=== PATIENT | male | born 1950 | race Caucasian/White ===

== ENCOUNTER 2017-05-16 08:56 | Emergency (ER) | payer OTHER, BC, MEDICARE ==
[2017-05-16 09:13] VITALS: BP 116/55
[2017-05-16] MEDS ORDERED: Sodium Chloride 0.9% 1,000 ML IV ONE (09:15)
[2017-05-16] MEDS ORDERED: Sodium Chloride 0.9% 10 ML Syringe FLUSH PRN (09:15)
[2017-05-16] MEDS ORDERED: fentaNYL 100 MCG/2 ML SDV IVPUSH ONE (09:15)
[2017-05-16] MEDS ORDERED: Ondansetron 4 MG/2 ML SDV IVPUSH ONE (09:15)
[2017-05-16] MEDS ORDERED: Ketorolac 30 MG/ML SDV IVPUSH ONE (09:15)
--- NOTE | 2017-05-16 09:16 | EDM.PDOC ---
ED HPI GENERAL MEDICAL PROBLEM - General Chief Complaint: Trauma Stated Complaint: DIFFICULTY BREATHING Time Seen by Provider: 05/16/17 09:02 Source of Information: Reports: Patient History Limitations: Reports: No Limitations - History of Present Illness INITIAL COMMENTS - FREE TEXT/NARRATIVE: 66 y/o M with R chest pain after injury. Fell with horse about 2 days ago. No LOC. Was able to get up and keep riding. Had aches and pains but thought he was ok so didn't seek medical attention immediately after the injury. Comes in now because he's been having severe R sided chest pains. Waxes adn wanes, worse with movement and inspiration, when severe is 10/10. Better with rest. Feels mildly SOB because he has pain with deep breathing. No headache/neck pain/back pain. Denies abd pain/vomiting. RLE is sore and mildly swollen but he can walk without a limp and is not concerned about it. Denies additional injury. No recent illness. Right Chest Pain Score (Numeric/FACES): 10 - Related Data Allergies Allergy/AdvReac Type Severity Reaction Status Date / Time No Known Allergies Allergy Verified 05/16/17 09:13 Home Meds: Home Meds Aspirin [Halfprin] 81 mg PO DAILY 08/10/15 [History] Lisinopril 40 mg PO DAILY 08/10/15 [History] Metoprolol Tartrate 25 mg PO BID 08/10/15 [History] Ubidecarenone [Co Q-10] 100 mg PO DAILY 08/10/15 [History] atorvaSTATin [Lipitor] 40 mg PO BEDTIME 08/10/15 [History] Docusate Sodium [Colace] 100 mg PO DAILY #30 cap 05/16/17 [Rx] Ibuprofen 800 mg PO TID PRN #60 tablet 05/16/17 [Rx] Meloxicam 15 mg PO QPM 05/16/17 [History] [place]-3S/DHA/Epa/Fish Oil [[place]-3 Fish Oil 1,200 mg Sfgl] 1 cap PO DAILY [History] Polyethylene Glycol 3350 [Miralax] 17 gm PO TID PRN #30 powd.pack 05/16/17 [Rx] oxyCODONE 5 mg PO QID PRN #30 tab 05/16/17 [Rx] traMADol [Ultram] 50 mg PO ASDIRECTED PRN 05/16/17 [History] Past Medical History Cardiovascular History: Reports: Hypertension, CT Musculoskeletal History: Reports: Fracture Other Musculoskeletal History: buritis left hip - Past Surgical History Cardiovascular Surgical History: Reports: Coronary Artery Stent Musculoskeletal Surgical History: Reports: Other (See Below) Social & Family History - Family History Endocrine/Metabolic: Reports: Diabetes, type II Oncologic: Reports: Colon - Tobacco Use Smoking Status *Q: Current Every Day Smoker Years of Tobacco use: 40 Packs/Tins Daily: 0.5 - Recreational Drug Use Recreational Drug Use: No Drug Use in Last 12 Months: No Review of Systems - Review of Systems Review Of Systems: See Below Constitutional: Denies: Fever Eyes: Reports: No Symptoms Ears: Reports: No Symptoms Nose: Reports: No Symptoms Mouth/Throat: Reports: No Symptoms Respiratory: Reports: Shortness of Breath Cardiovascular: Reports: Chest Pain GI/Abdominal: Denies: Abdominal Pain Genitourinary: Reports: No Symptoms Musculoskeletal: Denies: Neck Pain Skin: Reports: No Symptoms Neurological: Reports: No Symptoms ED EXAM, GENERAL - Physical Exam Exam: See Below Exam Limited By: No Limitations General Appearance: Alert, WD/WN, Mild Distress Eye Exam: Bilateral Eye: Normal Inspection Ears: Normal External Exam Nose: Normal Inspection, Normal Mucosa, No Blood Throat/Mouth: Normal Inspection, Normal Oropharynx, Normal Voice, No Airway Compromise Head: Atraumatic, Normocephalic Neck: Normal Inspection, Supple, Non-Tender, Full Range of Motion Respiratory/Chest: No Respiratory Distress, Other (diminished bilaterally possibily due to reduced inspiratory effort, few scattered wheezes) Cardiovascular: Normal Peripheral Pulses, Regular Rate, Rhythm, No Edema, No Murmur GI/Abdominal: Soft, Non-Tender, No Distention. No: Rebound Extremities: Other (R LE: knee nontender, no effusion. Few pre tibial abrasions , no bony TTP or deformity. Mild RLE edema from knee distally with mild soft tissue swelling of the pretibial and ankle areas, compartments soft, distally intact. ) Neurological: Alert, Oriented, Normal Cognition, No Motor/Sensory Deficits Psychiatric: Normal Affect, Normal Mood Skin Exam: Warm, Dry, Intact, Normal Color, No Rash Course - Vital Signs Last Recorded V/S: Last Vital Signs Temp 36.7 C 03/14/18 09:01 Pulse 67 05/16/17 09:01 Resp 13 05/16/17 09:01 BP 116/55 L 05/16/17 09:01 Pulse Ox 98 05/16/17 09:01 - Orders/Labs/Meds Orders: Active Orders 24 hr Category Date Time Status EKG 12 Lead [EKG Documentation Completion] [RC] STAT Care 05/16/17 09:15 Active Peripheral IV Care [RC] . DIRECTED Care 05/16/17 09:15 Active Chest 2V [CR] Stat Exams 05/16/17 09:40 Taken Peripheral IV Insertion Adult [OM.PC] Routine Oth 05/16/17 09:15 Ordered Labs: Laboratory Tests 05/16/17 05/16/17 Range/Units 09:25 09:25 WBC 9.75 H (4.23-9.07) K/mm3 RBC 4.34 L (4.63-6.08) M/mm3 Hgb 14.6 (13.7-17.5) gm/L Hct 42.3 (40.1-51.0) % MCV 97.5 H (79.0-92.2) fl MCH 33.6 H (25.7-32.2) pg MCHC 34.5 (32.2-35.5) g/dl RDW Std Deviation 43.6 (35.1-43.9) fL Plt Count 167 (163-337) K/mm3 MPV 9.9 (9.4-12.3) fl Neut % (Auto) 66.5 (34.0-67.9) % Lymph % (Auto) 19.0 L (21.8-53.1) % [place] % (Auto) 11.5 (5.3-12.2) % Eos % (Auto) 2.6 (0.8-7.0) Baso % (Auto) 0.2 (0.1-1.2) % Neut # (Auto) 6.49 H (1.78-5.38) K/mm3 Lymph # (Auto) 1.85 (1.32-3.57) K/mm3 [place] # (Auto) 1.12 H (0.30-0.82) K/mm3 Eos # (Auto) 0.25 (0.04-0.54) K/mm3 Baso # (Auto) 0.02 (0.01-0.08) K/mm3 Sodium 132 L (136-145) mEq/L Potassium 4.2 (3.5-5.1) mEq/L Chloride 97 L (98-107) mEq/L Carbon Dioxide 27 (21-32) mEq/L Anion Gap 12.2 (5-15) BUN 15 (7-18) mg/dL Creatinine 1.0 (0.7-1.3) mg/dL Est Cr Clr Drug Dosing 80.83 mL/min Estimated GFR (MDRD) > 60 (>60) mL/min BUN/Creatinine Ratio 15.0 (14-18) Glucose 126 H (80-115) mg/dL Calcium 8.9 (8.5-10.1) mg/dL Total Bilirubin 0.7 (0.2-1.0) mg/dL AST 39 H (15-37) U/L ALT 50 (16-63) U/L Alkaline Phosphatase 81 (46-116) U/L Troponin I < 0.017 (0.00-0.056) ng/mL Total Protein 7.7 (6.4-8.2) g/dl Albumin 3.9 (3.4-5.0) g/dl Globulin 3.8 gm/dL Albumin/Globulin Ratio 1.0 (1-2) Meds: Medications Discontinued Medications Generic Name Dose Route Start Last Admin Trade Name Freq PRN Reason Stop Dose Admin Fentanyl 100 mcg 05/16/17 09:15 05/16/17 09:40 Sublimaze IVPUSH 05/16/17 09:16 100 mcg ONETIME ONE Administration Sodium Chloride 1,000 mls @ 1,000 mls/hr 05/16/17 09:15 05/16/17 09:29 Normal Saline IV 05/16/17 10:14 1,000 mls/hr ONETIME ONE Administration Iopamidol 100 ml 05/16/17 10:14 05/16/17 10:21 Isovue-370 (76%) IVPUSH 05/16/17 10:15 100 ml ONETIME ONE Administration Ketorolac Tromethamine 30 mg 05/16/17 09:15 05/16/17 09:27 Toradol IVPUSH 05/16/17 09:16 30 mg ONETIME ONE Administration Ondansetron HCl 4 mg 05/16/17 09:15 05/16/17 09:27 Zofran IVPUSH 05/16/17 09:16 4 mg ONETIME ONE Administration Oxycodone HCl 5 mg 05/16/17 11:55 05/16/17 12:02 Oxycodone PO 05/16/17 11:56 5 mg ONETIME ONE Administration Sodium Chloride 10 ml 05/16/17 09:15 05/16/17 09:27 Saline Flush FLUSH 10 ml ASDIRECTED PRN Administration Keep Vein Open Sodium Chloride 10 ml 05/16/17 10:14 05/16/17 10:21 Saline Flush FLUSH 05/16/17 10:15 10 ml ONETIME ONE Administration - Re-Assessments/Exams Free Text/Narrative Re-Assessment/Exam: 05/16/17 10:39 EKG shows NSR, no evidence of acute ischemia. CXR shows normal cardiac silhouette, no ptx, normal study. Labs normal. CT chest/a/p: 05/16/17 13:46 CT chest a/p shows multiple rib fractures in R lateral chest - 6,7,8. No ptx or other injury on CT. Patient is much more comfortable after fentanyl. Discussed pain control, need for f/u, and return precautions. Departure - Departure Time of Disposition: 11:38 Disposition: Home, Self-Care 01 Clinical Impression: Ribs, multiple fractures Qualifiers: Encounter type: initial encounter Fracture type: closed Laterality: right Qualified Code(s): S22.41XA - Multiple fractures of ribs, right side, initial encounter for closed fracture - Discharge Information Prescriptions: Docusate Sodium [Colace] 100 mg PO DAILY #30 cap Ibuprofen 800 mg PO TID PRN #60 tablet PRN Reason: Pain oxyCODONE 5 mg PO QID PRN #30 tab PRN Reason: Pain Polyethylene Glycol 3350 [Miralax] 17 gm PO TID PRN #30 powd.pack PRN Reason: Constipation Instructions: Rib Fracture, [id number] Referrals: Lexie Alexis DO [Primary Care Provider] - Forms: ED Department Discharge Additional Instructions: 1. Take acetaminophen (tylenol) according to bottle directions and ibuprofen as prescribed for pain. OK to take these meds together - they work and are cleared by the body in different ways. 2. Take oxycodone as prescribed for severe pain. 3. Follow up with a primary doctor in approximately 1 week for further care/ medication refills as needed 4. Take colace (stool softener) daily. Use miralax as needed for constipation or take the over the counter meds of your choice as needed for constipation 5. Return to the ED if you have difficulty breathing, fever, or any other concerning symptoms - My Orders Last 24 Hours: My Active Orders 05/16/17 09:15 EKG 12 Lead [EKG Documentation Completion] [RC] STAT Peripheral IV Care [RC] . DIRECTED Peripheral IV Insertion Adult [OM.PC] Routine 05/16/17 09:40 Chest 2V [CR] Stat - Assessment/Plan Last 24 Hours: My Active Orders 05/16/17 09:15 EKG 12 Lead [EKG Documentation Completion] [RC] STAT Peripheral IV Care [RC] . DIRECTED Peripheral IV Insertion Adult [OM.PC] Routine 05/16/17 09:40 Chest 2V [CR] Stat
[2017-05-16] MEDS ORDERED: Sodium Chloride 0.9% 10 ML Syringe FLUSH ONE (10:14)
[2017-05-16] MEDS ORDERED: Iopamidol 755 Mg/ML 100 ML Bottle IVPUSH ONE (10:14)
--- NOTE | 2017-05-16 11:19 | CT ---
CT chest Technique: Multiple axial sections were obtained from above the lung apices inferiorly through the lung bases. Intravenous contrast was utilized. Comparison: No prior chest CT, prior chest x-ray performed earlier on the same day is available. Findings: Mediastinum and hilar regions show no adenopathy or mass. Minimal coronary artery calcification is seen. No pericardial thickening is seen. Slight scarring is seen within both lung bases. No acute parenchymal densities are seen within the lungs. No pleural effusions or pneumothorax is seen. Bone window settings were reviewed which shows fractures within the right sixth, seventh and eighth ribs. Scattered degenerative spurring is noted within the spine. Reconstructed sagittal images of the sternum appear intact. Impression: 1. 3 right sided rib fractures. 2. No other acute abnormality is seen on CT study of the chest. Diagnostic code #3 CT abdomen and pelvis Technique: Multiple axial sections were obtained from above the dome of the diaphragm inferiorly through the pubic symphysis. Intravenous contrast was utilized. No oral contrast has been given. Comparison: No previous abdominal or pelvic CT exam is available. Findings: Liver shows no focal abnormality. Spleen appears normal. Adrenal glands show no nodule. Kidneys show symmetric contrast enhancement. Cyst is noted within the mid left kidney measuring 2.2 cm. Kidneys are otherwise unremarkable. Pancreas is normal. Gallbladder contains no calcified gallstones. Aorta shows atherosclerotic change which continues into the iliac vessels. No retroperitoneal adenopathy or mesenteric abnormalities are seen. No pelvic mass or adenopathy is seen. No free fluid or inflammatory change is seen within the abdomen or within the pelvis. Anterior wedge deformity is seen of L1 which appears to be old. Scattered degenerative change within this lumbar spine is seen with vacuum phenomena within the L4-5 and L5-S1 apophyseal joints. Nothing acute is seen on bone window settings within the hips or within the pelvis. Impression: 1. Degenerative change within the spine with old appearing anterior wedge deformity of L1. 2. Other incidental findings. Nothing acute is seen on CT study of the abdomen and pelvis. Diagnostic code #2
[2017-05-16] MEDS ORDERED: oxyCODONE 5 MG Tab PO ONE (11:55)
--- NOTE | 2017-05-16 15:52 | CR ---
Chest: Two views of the chest were obtained. Comparison: Prior chest x-ray of 03/19/15. Heart size is normal. Tortuous thoracic aorta is seen. Lungs are clear. Bony structures appear within normal limits for the patient's age. Impression: 1. Nothing acute is identified on two-view chest x-ray. Diagnostic code #2
== END 2017-05-16 12:19 | disposition home or self-care (01) ==
LOC: JD.ED 08:56
DX: S22.41XA Multiple fractures of ribs, right side, initial encounter for closed fracture (principal); F17.210 Nicotine dependence, cigarettes, uncomplicated; I10 Essential (primary) hypertension; I25.2 Old myocardial infarction; Z79.899 Other long term (current) drug therapy; Z79.82 Long term (current) use of aspirin; V80.010A Animal-rider injured by fall from or being thrown from horse in noncollision accident, initial encounter; Y93.52 Activity, horseback riding
CPT/HCPCS: 36415; 71046; 71260; 74177; 80053; 84484; 85025; 93005; 96361; 96374; 96375; 99284; A9270; J1885; J2405; J3010; J7040; J7050; Q9967

== ENCOUNTER 2019-08-13 12:23 | Day surgery (SDC) | payer OTHER ==
[2019-08-13] MEDS ORDERED: Propofol 200 MG/20 ML SDV ONE ×3 (12:44→14:01)
[2019-08-13] MEDS ORDERED: Lidocaine 1% 4 ML ONE (12:45)
[2019-08-13] MEDS ORDERED: fentaNYL 100 MCG/2 ML SDV ONE ×2 (12:45→12:46)
[2019-08-13] MEDS: Lactated Ringers 1,000 ML IV SCH ×2 (12:50→15:04)
--- NOTE | 2019-08-13 13:13 | PCM.PREANE ---
Preanesthetic Assessment - Procedure Proposed Procedure: Screening Colonoscopy - Anesthesia/Transfusion/Family Hx Anesthesia History: Prior Anesthesia Without Reaction Family History of Anesthesia Reaction: No - Review of Systems General: No Symptoms Pulmonary: Cough (Smoker 1/2 pack per day. Dry Cough. ) Cardiovascular: No Symptoms (HI 17 years ago 2 stents placed. Collateral circulation. Follows yearly with cardiology in [place]. ) Gastrointestinal: No Symptoms Neurological: Pre-Existing Deficit Other: Reports: None - Physical Assessment NPO Status Date: 08/13/19 NPO Status Time: 06:00 (Water) Weight: 84 kg ASA Class: 2 Mental Status: Alert & Oriented x3 Airway Class: Mallampati = 1 Dentition: Reports: Normal Dentition Thyro-Mental Finger Breadths: 3 Mouth Opening Finger Breadths: 3 ROM/Head Extension: Full Lungs: Clear to Auscultation, Normal Respiratory Effort Cardiovascular: Regular Rate, Regular Rhythm - Allergies Allergies/Adverse Reactions: Allergies Allergy/AdvReac Type Severity Reaction Status Date / Time No Known Allergies Allergy Verified 05/16/17 09:13 - Acknowledgements Anesthesia Type Planned: MAC Pt an Appropriate Candidate for the Planned Anesthesia: Yes Alternatives and Risks of Anesthesia Discussed w Pt/Guardian: Yes Pt/Guardian Understands and Agrees with Anesthesia Plan: Yes PreAnesthesia Questionnaire HEENT History: Reports: Impaired Vision Cardiovascular History: Reports: Hypertension, [place] Musculoskeletal History: Reports: Fracture Other Musculoskeletal History: buritis left hip - Past Surgical History Cardiovascular Surgical History: Reports: Coronary Artery Stent Musculoskeletal Surgical History: Reports: Other (See Below) - HOME MEDS Home Medications: Home Meds Aspirin [Halfprin] 81 mg PO DAILY 08/10/15 [History] Lisinopril 40 mg PO DAILY 08/10/15 [History] Metoprolol Tartrate 25 mg PO BID 08/10/15 [History] Ubidecarenone [Co Q-10] 100 mg PO DAILY 08/10/15 [History] atorvaSTATin [Lipitor] 40 mg PO BEDTIME 08/10/15 [History] Docusate Sodium [Colace] 100 mg PO DAILY #30 cap 05/16/17 [Rx] Ibuprofen 800 mg PO TID PRN #60 tablet 05/16/17 [Rx] Meloxicam 15 mg PO QPM 05/16/17 [History] [place]-3S/DHA/Epa/Fish Oil [[place]-3 Fish Oil 1,200 mg Sfgl] 1 cap PO DAILY [History] oxyCODONE 5 mg PO QID PRN #30 tab 05/16/17 [Rx] polyethylene glycoL 3350 [Miralax] 17 gm PO TID PRN #30 powd.pack 05/16/17 [Rx] traMADol [Ultram] 50 mg PO ASDIRECTED PRN 05/16/17 [History] - CURRENT (IN HOUSE) MEDS Current Meds: Current Medications Discontinued Medications Fentanyl (Sublimaze) Confirm Administered Dose 100 mcg .ROUTE .STK-MED ONE Stop: 08/13/19 12:46 Fentanyl (Sublimaze) Confirm Administered Dose 100 mcg .ROUTE .STK-MED ONE Stop: 08/13/19 12:47 Lidocaine HCl (Xylocaine-Mpf 1%) Confirm Administered Dose 4 mls @ as directed .ROUTE .STK-MED ONE Stop: 08/13/19 12:46 Propofol (Diprivan 20 Ml) Confirm Administered Dose 400 mg .ROUTE .STK-MED ONE Stop: 08/13/19 12:45
--- NOTE | 2019-08-13 14:31 | PCM48HPAN ---
Post Anesthesia Note - EVALUATION WITHIN 48HRS OF ANESTHETIC Vital Signs in Normal Range: Yes Patient Participated in Evaluation: Yes Respiratory Function Stable: Yes Airway Patent: Yes Cardiovascular Function Stable: Yes Hydration Status Stable: Yes Pain Control Satisfactory: Yes Nausea and Vomiting Control Satisfactory: Yes Mental Status Recovered: Yes
[2019-08-13] MEDS ORDERED: Lidocaine 1%/Sod Bicarbonate in NS 8.4% 1 ML Syringe IDERM ONE (14:32)
--- NOTE | 2019-08-13 14:36 | PCM.PRNOTE ---
- Free Text/Narrative Note: Date: 08/13/2019 Procedure: screening colonoscopy Findings: 1 cm irregular broad-based polypoid lesion near hepatic flexure, with adjacent simple subcentimeter polyp. Broad, approximately 3 cm sessile lesion at 30 cm from the anal verge. Scattered small diverticula. Detailed Report: The patient was taken to the endoscopy suite and placed in left lateral decubitus position. Time out was performed and monitored anesthesia care initiated. The anus appeared normal. Digital rectal exam was unremarkable. The colonoscope was inserted into the anus and advanced to the cecum with ease. The appendiceal orifice was visualized. Prep was very good. The scope was slowly withdrawn and mucosal surfaces carefully inspected. Near the hepatic flexure, a 1 cm, irregular shaped broad-based polyp was identified. This was resected piecemeal with forceps; it was very difficult to get any purchase with the snare. Remaining tissue was fulgurated, and submucosal tattoo ink was injected just distal to this lesion. A nearby subcentimeter polyp, within 10 cm downstream, was biopsied and fulgurated with forceps. Aside from a few scattered small diverticula, no abnormalities were noted until about 30 cm from the anal verge. A broad-based, crescent shaped sessile polyp spanning about half the circumference of the wall of the colon was identified. This was not amenable to complete endoscopic resection. Several biopsy samples were obtained using cold forceps. This lesion appeared to be well within the boundaries of the sigmoid colon. Distal tattoo inking was performed with submucosal injection. The rectum appeared normal, on retroflexion, no abnormalities were noted. Air was suctioned and the scope withdrawn. The patient tolerated the procedure well. Naren Grace MD General Surgery
[2019-08-13 15:01] VITALS: BP 124/77; PULSE 69
== END 2019-08-13 15:20 | disposition home or self-care (01) ==
LOC: JD.SDS 12:23
PROVIDERS: ATTEND Surgery
DX: Z12.11 Encounter for screening for malignant neoplasm of colon (principal); D12.2 Benign neoplasm of ascending colon; D12.5 Benign neoplasm of sigmoid colon; K57.30 Diverticulosis of large intestine without perforation or abscess without bleeding; I10 Essential (primary) hypertension; F17.210 Nicotine dependence, cigarettes, uncomplicated; E78.00 Pure hypercholesterolemia, unspecified; Z79.899 Other long term (current) drug therapy; Z79.82 Long term (current) use of aspirin
CPT/HCPCS: 45380; 45381; J2001; J2704; J3010; J7120; 00812

== ENCOUNTER 2019-11-27 08:29 | Day surgery (SDC) | payer OTHER ==
[~2019-11-27 08:29] MED LIST: Lactated Ringers 1,000 ML IV SCH; Lidocaine 1%/Sod Bicarbonate in NS 8.4% 1 ML Syringe IDERM PRN; Sodium Chloride 0.9% 10 ML Syringe FLUSH PRN
--- NOTE | 2019-11-27 09:40 | PCM.PREANE ---
Preanesthetic Assessment - Procedure Proposed Procedure: diagnositic colonscopy - Anesthesia/Transfusion/Family Hx Anesthesia History: Prior Anesthesia Without Reaction Family History of Anesthesia Reaction: No Transfusion History: No Prior Transfusion(s) Intubation History: Unknown - Review of Systems General: No Symptoms Pulmonary: No Symptoms Cardiovascular: No Symptoms Gastrointestinal: No Symptoms Neurological: No Symptoms Other: Reports: None - Physical Assessment NPO Status Date: 11/27/19 NPO Status Time: 04:30 (bowel prep, sunday last food ) Vital Signs: Last Vital Signs Temp 36.2 C 11/27/19 08:25 Pulse 57 L 11/27/19 08:25 Resp 18 11/27/19 08:25 BP 151/63 H 11/27/19 08:25 Pulse Ox 96 11/27/19 08:25 Height: 1.83 m Weight: 83.5 kg Mental Status: Alert & Oriented x3 Dentition: Reports: Normal Dentition, [place] Thyro-Mental Finger Breadths: 3 Mouth Opening Finger Breadths: 4 ROM/Head Extension: Full Lungs: Clear to Auscultation, Normal Respiratory Effort Cardiovascular: Regular Rate, Regular Rhythm - Lab Values: Laboratory Last Values SARS-CoV-2 (PCR) Not detected (NOT DETECT) 11/24/19 11:45 - Allergies Allergies/Adverse Reactions: Allergies Allergy/AdvReac Type Severity Reaction Status Date / Time No Known Allergies Allergy Verified 11/26/19 12:21 - Blood Blood Available: No - Anesthesia Plan Beta Mayco: Metoprolol - Acknowledgements Anesthesia Type Planned: MAC Pt an Appropriate Candidate for the Planned Anesthesia: Yes Alternatives and Risks of Anesthesia Discussed w Pt/Guardian: Yes Pt/Guardian Understands and Agrees with Anesthesia Plan: Yes PreAnesthesia Questionnaire HEENT History: Reports: Hard of Hearing, Impaired Vision, Other (See Below) Other HEENT History: wears glasses Cardiovascular History: Reports: High Cholesterol, Hypertension, [place], Stents Respiratory History: Reports: None Gastrointestinal History: Reports: None Genitourinary History: Reports: Other (See Below) Other Genitourinary History: vasectomy [employer]AY 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: 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 Musculoskeletal History: Reports: Fracture, Osteoarthritis Other Musculoskeletal History: buritis left hip Neurological History: Reports: Other (See Below) Other Neuro History: lumbar degenerative disc disease, spinal stenosis of lumbar region with radiculopathy Psychiatric History: Reports: None Endocrine/Metabolic History: Reports: None Hematologic History: Reports: None Immunologic History: Reports: None Oncologic (Cancer) History: Reports: None Dermatologic History: Reports: None - Infectious Disease History Infectious Disease History: Reports: None - Past Surgical History Head Surgeries/Procedures: Reports: None Cardiovascular Surgical History: Reports: None, Coronary Artery Stent Respiratory Surgical History: Reports: None GI Surgical History: Reports: Colonoscopy Female Surgical History: Reports: None Male Surgical History: Reports: None Endocrine Surgical History: Reports: None Neurological Surgical History: Reports: Lumbar Spine Musculoskeletal Surgical History: Reports: Other (See Below) Other Musculoskeletal Surgeries/Procedures:: elbow surgery Oncologic Surgical History: Reports: None Dermatological Surgical History: Reports: None - SUBSTANCE USE Smoking Status *Q: Current Every Day Smoker Recreational Drug Use History: No - HOME MEDS Home Medications: Home Meds Aspirin [Halfprin] 81 mg PO DAILY 08/10/15 [History] Lisinopril 40 mg PO DAILY 08/10/15 [History] Ubidecarenone [Co Q-10] 100 mg PO DAILY 08/10/15 [History] Meloxicam 15 mg PO QPM 05/16/17 [History] [place]-3S/DHA/Epa/Fish Oil [[place]-3 Fish Oil 1,200 mg Sfgl] 1 cap PO DAILY 05/16/17 [History] Cholecalciferol (Vitamin D3) [Vitamin D3] 1,000 unit PO DAILY 11/26/19 [History] Metoprolol Tartrate 12.5 mg PO BID 11/26/19 [History] Sildenafil [Viagra] 100 mg PO ASDIRECTED PRN 11/26/19 [History] atorvaSTATin [Lipitor] 20 mg PO DAILY 11/26/19 [History] - CURRENT (IN HOUSE) MEDS Current Meds: Current Medications Lactated Ringer's (Ringers, Lactated) 1,000 mls @ 125 mls/hr IV ASDIRECTED TARA Stop: 11/27/19 23:00 Last Admin: 11/27/19 08:35 Dose: 125 mls/hr Documented by: Lidocaine/Sodium Bicarbonate (Buffered Lidocaine 1% In Ns 8.4%) 0.25 ml IDERM ONETIME PRN PRN Reason: Prior to IV Start Stop: 11/27/19 18:00 Sodium Chloride (Saline Flush) 10 ml FLUSH ASDIRECTED PRN PRN Reason: Keep Vein Open Stop: 11/27/19 18:00
[2019-11-27] MEDS ORDERED: Propofol 200 MG/20 ML SDV ONE ×4 (09:43→11:07)
[2019-11-27] MEDS ORDERED: Lidocaine 1% 4 ML ONE (09:43)
--- NOTE | 2019-11-27 11:28 | PCM48HPAN ---
Post Anesthesia Note - EVALUATION WITHIN 48HRS OF ANESTHETIC Vital Signs in Normal Range: Yes Patient Participated in Evaluation: Yes Respiratory Function Stable: Yes Airway Patent: Yes Cardiovascular Function Stable: Yes Hydration Status Stable: Yes Pain Control Satisfactory: Yes Nausea and Vomiting Control Satisfactory: Yes Mental Status Recovered: Yes Vital Signs: Last Vital Signs 1123 95/61 94 on 2 l 64 16 97.1 Temp 36.2 C 11/27/19 08:25 Pulse 57 L 11/27/19 08:25 Resp 18 11/27/19 08:25 BP 151/63 H 11/27/19 08:25 Pulse Ox 96 11/27/19 08:25
--- NOTE | 2019-11-27 11:59 | PCM.PRNOTE ---
- Free Text/Narrative Note: Date: 08/13/2019 Procedure: diagnostic/therapeutic colonoscopy Indication: prior screening three months ago with larger, sessile lesions worrisome for dysplasia or malignancy, with path showing only evidence of tubular adenoma. Findings: 1 cm irregular broad-based polypoid lesion near hepatic flexure, similar to appearance on last scope. Broad, approximately 3 cm sessile lesion at 30 cm from the anal verge, unchanged from prior. Scattered small diverticula. Detailed Report: The patient was taken to the endoscopy suite and placed in left lateral decubitus position. Time out was performed and monitored anesthesia care initiated. The anus appeared normal. Digital rectal exam was unremarkable. The colonoscope was inserted into the anus and advanced to the cecum with ease. The appendiceal orifice was visualized. Prep was very good. The scope was slowly withdrawn and mucosal surfaces carefully inspected. Near the hepatic flexure, a an irregular shaped broad-based polyp was identified. Several biopsies with forceps were obtained, but this lesion was not amenable to complete endoscopic resection. I did not see evidence of prior tattooing so this was redone. Aside from a few scattered small diverticula, no abnormalities were noted until about 30 cm from the anal verge. A broad-based, crescent shaped sessile polyp spanning about half the circumference of the wall of the colon was identified. This was again deemed not amenable to complete endoscopic resection, as its appearance was essentially unchanged from three months ago. Several biopsy samples were obtained using cold forceps. The ridge was then fulgurated. Distal tattoo inking was performed with submucosal injection. The rectum appeared normal, on retroflexion, no abnormalities were noted. Air was suctioned and the scope withdrawn. The patient tolerated the procedure well.
[2019-11-27 13:12] VITALS: BP 138/89; PULSE 50
== END 2019-11-27 12:28 | disposition home or self-care (01) ==
LOC: JD.SDS 08:29
PROVIDERS: ATTEND Surgery
DX: D12.5 Benign neoplasm of sigmoid colon (principal); D12.3 Benign neoplasm of transverse colon; K57.30 Diverticulosis of large intestine without perforation or abscess without bleeding; Z01.812 Encounter for preprocedural laboratory examination; Z20.828 Contact with and (suspected) exposure to other viral communicable diseases; I10 Essential (primary) hypertension; F17.210 Nicotine dependence, cigarettes, uncomplicated; E78.00 Pure hypercholesterolemia, unspecified; Z79.899 Other long term (current) drug therapy; Z98.890 Other specified postprocedural states; Z79.82 Long term (current) use of aspirin
CPT/HCPCS: 45380; 45381; 87635; J2001; J2704; J7120; 00811; U0002

== ENCOUNTER 2019-12-25 06:34 | Inpatient (IN) | payer OTHER, MEDICARE ==
[2019-12-25] MEDS ORDERED: Midazolam 1 MG/ML 2 ML SDV ONE (08:36)
[2019-12-25] MEDS ORDERED: fentaNYL 100 MCG/2 ML SDV ONE (08:36)
[2019-12-25] MEDS ORDERED: Propofol 200 MG/20 ML SDV ONE (08:36)
[2019-12-25] MEDS ORDERED: Ondansetron 4 MG/2 ML SDV ONE ×2 (08:37→15:26)
[2019-12-25] MEDS ORDERED: Lidocaine 1% 4 ML ONE (08:37)
[2019-12-25] MEDS ORDERED: Dexamethasone 4 MG/ML 5 ML MDV ONE (08:37)
[2019-12-25] MEDS ORDERED: Rocuronium 50 MG/5 ML Vial ONE ×2 (08:37→11:17)
[2019-12-25] MEDS ORDERED: Ketorolac 30 MG/ML SDV ONE (08:37)
--- NOTE | 2019-12-25 08:44 | PCM.PREANE ---
Preanesthetic Assessment - Procedure Proposed Procedure: Right partial colectomy open and partial sigmoid - Anesthesia/Transfusion/Family Hx Anesthesia History: Prior Anesthesia Without Reaction Family History of Anesthesia Reaction: No Transfusion History: No Prior Transfusion(s) Intubation History: Unknown - Review of Systems General: No Symptoms Pulmonary: Cough, Other (Smoker 1/2 ppday. 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 Collateral circulation established. Greather than 4 MET capacity. ) Gastrointestinal: No Symptoms Neurological: Numbness (Hands), Pre-Existing Deficit (Back surgery for lumbar stenosis) Other: Reports: None - Physical Assessment Vital Signs: Last Vital Signs Temp 36.7 C 12/25/19 08:10 Pulse 60 12/25/19 08:10 Resp 16 12/25/19 08:10 BP 123/81 12/25/19 08:10 Pulse Ox 96 12/25/19 08:10 ASA Class: 3 Mental Status: Alert & Oriented x3 Airway Class: Mallampati = 2 Dentition: Reports: Normal Dentition Thyro-Mental Finger Breadths: 3 Mouth Opening Finger Breadths: 3 ROM/Head Extension: Full Lungs: Clear to Auscultation, Normal Respiratory Effort, Decreased Breath Sounds Cardiovascular: Regular Rate, Regular Rhythm - Lab Values: Laboratory Last Values WBC 7.53 K/mm3 (4.23-9.07) 12/25/19 08:21 RBC 4.74 M/mm3 (4.63-6.08) 12/25/19 08:21 Hgb 15.7 gm/dl (13.7-17.5) 12/25/19 08:21 Hct 46.2 % (40.1-51.0) 12/25/19 08:21 MCV 97.5 fl (79.0-92.2) H 12/25/19 08:21 MCH 33.1 pg (25.7-32.2) H 12/25/19 08:21 MCHC 34.0 g/dl (32.2-35.5) 12/25/19 08:21 RDW Std Deviation 45.3 fL (35.1-43.9) H 12/25/19 08:21 Plt Count 178 K/mm3 (163-337) 12/25/19 08:21 MPV 9.8 fl (9.4-12.3) 12/25/19 08:21 Neut % (Auto) 58.7 % (34.0-67.9) 12/25/19 08:21 Lymph % (Auto) 27.2 % (21.8-53.1) 12/25/19 08:21 Aiken % (Auto) 11.0 % (5.3-12.2) 12/25/19 08:21 Eos % (Auto) 2.4 (0.8-7.0) 12/25/19 08:21 Baso % (Auto) 0.3 % (0.1-1.2) 12/25/19 08:21 Neut # (Auto) 4.42 K/mm3 (1.78-5.38) 12/25/19 08:21 Lymph # (Auto) 2.05 K/mm3 (1.32-3.57) 12/25/19 08:21 Aiken # (Auto) 0.83 K/mm3 (0.30-0.82) H 12/25/19 08:21 Eos # (Auto) 0.18 K/mm3 (0.04-0.54) 12/25/19 08:21 Baso # (Auto) 0.02 K/mm3 (0.01-0.08) 12/25/19 08:21 - Imaging/EKG Impressions: Reviewed. - Allergies Allergies/Adverse Reactions: Allergies Allergy/AdvReac Type Severity Reaction Status Date / Time No Known Allergies Allergy Verified 12/25/19 09:32 - Anesthesia Plan Pre-Op Medication Ordered: Other (Albuterol Neb Preoperatively) Beta Mayco: Metoprolol Med Last Dose Date: 12/25/19 Med Last Dose Time: 06:00 - Acknowledgements Anesthesia Type Planned: General Anesthesia Pt an Appropriate Candidate for the Planned Anesthesia: Yes Alternatives and Risks of Anesthesia Discussed w Pt/Guardian: Yes Pt/Guardian Understands and Agrees with Anesthesia Plan: Yes PreAnesthesia Questionnaire HEENT History: Reports: Impaired Vision Other HEENT History: wears glasses Cardiovascular History: Reports: Hypertension, [place] Respiratory History: Reports: None Gastrointestinal History: Reports: None Genitourinary History: Reports: Other (See Below) Other Genitourinary History: vasectomy 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 Musculoskeletal History: Reports: Fracture Other Musculoskeletal History: buritis left hip Neurological History: Reports: Other (See Below) Other Neuro History: lumbar degenerative disc disease, spinal stenosis of lumbar region with radiculopathy Psychiatric History: Reports: None Endocrine/Metabolic History: Reports: None Hematologic History: Reports: None Immunologic History: Reports: None Oncologic (Cancer) History: Reports: None Dermatologic History: Reports: None - Infectious Disease History Infectious Disease History: Reports: None - Past Surgical History Head Surgeries/Procedures: Reports: None Cardiovascular Surgical History: Reports: Coronary Artery Stent Respiratory Surgical History: Reports: None GI Surgical History: Reports: Colonoscopy Female Surgical History: Reports: None Male Surgical History: Reports: None Endocrine Surgical History: Reports: None Neurological Surgical History: Reports: Lumbar Spine Musculoskeletal Surgical History: Reports: Other (See Below) Other Musculoskeletal Surgeries/Procedures:: elbow surgery Oncologic Surgical History: Reports: None Dermatological Surgical History: Reports: None - SUBSTANCE USE Tobacco Use Status *Q: Current Every Day Tobacco User Recreational Drug Use History: No - HOME MEDS Home Medications: Home Meds Aspirin [Halfprin] 81 mg PO QPM 08/10/15 [History] Lisinopril 40 mg PO QPM 08/10/15 [History] Ubidecarenone [Co Q-10] 100 mg PO DAILY 08/10/15 [History] Meloxicam 15 mg PO DAILY 05/16/17 [History] [place]-3S/DHA/Epa/Fish Oil [[place]-3 Fish Oil 1,200 mg Sfgl] 1,000 mg PO DAILY 05/16/17 [History] Cholecalciferol (Vitamin D3) [Vitamin D3] 1,000 unit PO QPM 11/26/19 [History] Metoprolol Tartrate 25 mg PO BID 11/26/19 [History] Sildenafil [Viagra] 100 mg PO ASDIRECTED PRN 11/26/19 [History] atorvaSTATin [Lipitor] 20 mg PO QPM 11/26/19 [History] - CURRENT (IN HOUSE) MEDS Current Meds: Current Medications Albuterol (Proventil Neb Soln) 2.5 mg NEB ONETIME TARA Stop: 12/25/19 12:00 Lactated Ringer's (Ringers, Lactated) 1,000 mls @ 125 mls/hr IV ASDIRECTED TARA Stop: 12/25/19 23:00 Cefoxitin Sodium 2 gm/ Premix 50 mls @ 100 mls/hr IV ONETIME TARA Stop: 12/25/19 12:00 Influenza Virus Vaccine (Fluzone High-Dose Quad ) 240 mcg IM .ONCE ONE Stop: 12/25/19 11:01 Lidocaine/Sodium Bicarbonate (Buffered Lidocaine 1% In Ns 8.4%) 0.25 ml IDERM ONETIME PRN PRN Reason: Prior to IV Start Stop: 12/25/19 18:00 Sodium Chloride (Saline Flush) 10 ml FLUSH ASDIRECTED PRN PRN Reason: Keep Vein Open Stop: 12/25/19 18:00 Discontinued Medications Dexamethasone (Dexamethasone) Confirm Administered Dose 20 mg .ROUTE .STK-MED ONE Stop: 12/25/19 08:38 Fentanyl (Sublimaze) Confirm Administered Dose 100 mcg .ROUTE .STK-MED ONE Stop: 12/25/19 08:37 Lidocaine HCl (Xylocaine-Mpf 1%) Confirm Administered Dose 4 mls @ as directed .ROUTE .STK-MED ONE Stop: 12/25/19 08:38 Influenza Virus Vaccine (Pharmacy To Dose - Influenza Vaccine) 1 each IM ONETIME ONE Stop: 12/24/19 16:12 Ketorolac Tromethamine (Toradol) Confirm Administered Dose 30 mg .ROUTE .STK-MED ONE Stop: 12/25/19 08:38 Midazolam HCl (Versed 1 Mg/Ml) Confirm Administered Dose 2 mg .ROUTE .STK-MED ONE Stop: 12/25/19 08:37 Ondansetron HCl (Zofran) Confirm Administered Dose 4 mg .ROUTE .STK-MED ONE Stop: 12/25/19 08:38 Propofol (Diprivan 20 Ml) Confirm Administered Dose 200 mg .ROUTE .STK-MED ONE Stop: 12/25/19 08:37 Rocuronium Kiron (Zemuron) Confirm Administered Dose 50 mg .ROUTE .STK-MED ONE Stop: 12/25/19 08:38
[2019-12-25] MEDS ORDERED: Bupivacaine 0.5%/EPINEPHrine 1:200,000 50 ML MDV ONE (08:46)
[2019-12-25] MEDS ORDERED: cefOXitin 2 GM in Premix Bag 1 BAG IV SCH (09:00)
[2019-12-25] MEDS ORDERED: Albuterol 0.083% 2.5 MG/3 ML Neb Soln NEB SCH (09:00)
[2019-12-25] MEDS ORDERED: Lactated Ringers 1,000 ML ONE ×2 (10:28→11:49)
[2019-12-25] MEDS ORDERED: HYDROmorphone 0.5 MG/0.5 ML Syringe ONE ×7 (10:43→14:57)
[2019-12-25] MEDS ORDERED: ePHEDrine 50 MG/ML SDV ONE (10:53)
[2019-12-25] MEDS ORDERED: Ketamine 500 mg/10 ML MDV ONE (11:00)
[2019-12-25] MEDS ORDERED: FLU Vacc QV2020-21(65YR UP)/PF 240 MCG/0.7 ML Syringe IM ONE ×2 (11:00→23:00)
[2019-12-25] MEDS ORDERED: oxyCODONE 5 MG Tab PO PRN (15:30)
[2019-12-25] MEDS ORDERED: Ondansetron 4 MG in Sodium Chloride 0.9% 50 ML IV SCH (15:45)
[2019-12-25] MEDS ORDERED: HYDROmorphone 0.5 MG/0.5 ML Syringe IVPUSH PRN (16:00)
[2019-12-25] MEDS ORDERED: Ondansetron 4 MG/2 ML SDV IVPUSH PRN (16:00)
[2019-12-25] MEDS ORDERED: fentaNYL 100 MCG/2 ML SDV IVPUSH PRN (16:00)
--- NOTE | 2019-12-25 16:00 | PCM.POSTAN ---
POST ANESTHESIA ASSESSMENT - MENTAL STATUS Mental Status: Somnolent - VITAL SIGNS Vital Signs: Last Vital Signs Temp 36.7 C 12/25/19 08:10 Pulse 60 12/25/19 08:10 Resp 16 12/25/19 08:10 BP 123/81 12/25/19 08:10 Pulse Ox 96 12/25/19 08:10 - RESPIRATORY Respiratory Status: Respiratory Rate WNL, Airway Patent, O2 Saturation Stable, Supplemental Oxygen - CARDIOVASCULAR CV Status: Pulse Rate WNL, Blood Pressure Stable - GASTROINTESTINAL GI Status: No Symptoms - PAIN Pain Score: 0 - POST OP HYDRATION Hydration Status: Adequate & Stable
--- NOTE | 2019-12-25 17:22 | PCM.PRNOTE ---
- Free Text/Narrative Note: Date: 12/25/2019 Operation: open partial sigmoid colectomy, laparoscopic assisted right hemicolectomy Indication: colon polyps not amenable to endoscopic resection Surgeon: Naren Grace Antibiotics: 2 g cefoxitin IV pre-op EBL: 100 cc DVT Ppx: SCD Complications: none Findings: Pfannenstiel incision made for open resection of sigmoid colon. Tattoo ink sites identified at mid-sigmoid colon and proximal transverse colon. A 5 cm section of sigmoid colon was resected and hand-sewn end-to-end anastomosis created. The incision was closed and then laparoscopic right colectomy with stapled side to side ileocolic anastomosis created using linear cutting stapler. Detailed Report: The patient was taken to the OR and placed supine on the table. Time out was performed. General endotracheal anesthesia was initiated. A dong catheter was placed, abdominal hair was clipped and the abdomen was prepped and draped in usual sterile fashion. A low transverse abdominal incision was made 2 cm superior to the pubic symphysis measuring 7 cm. The anterior rectus fascia was divided transversely, and flaps created superiorly and inferiorly in the plane anterior to the rectus muscles. The peritoneum was then entered safely at the midline. The Bookwalter retractor was set up to aid with retraction and exposure. With the patient in Trendelenburg position, the sigmoid colon was brought into the operative field. The tattoo ink was seen at the level of the serosa, which marked the point just distal to the lesion in question. Lateral attachments were divided from the pelvic inlet up toward the spleen, and the sigmoid was well mobilized. A window was made in the mesentery just distal to the tattoo site, and a linear cutting stapler was used to divide the bowel. The Ligasure was used to divide mesocolon heading proximally to a site a few centimeters proximal to the ink marking. The contour stapler was used to divide proximally, and stay sutures were placed to bring the two stapled ends into view. The staple lines were removed with monopolar energy. The lumen was inspected proximally and distally and no abnormalities were noted. The ends came together without tension. A single layer hand-sewn anastomosis was created using interrupted 3-0 vicryl suture. It did not appear feasible to do the entire right mobilization through the Pfannenstiel incision, and so the incision was closed in layers using 0 PDS suture longitudinally to close the peritoneum and transversely to close the anterior rectus fascia. Skin was closed with dipika. Next, a Veress needle was placed at Garcia's point for insufflation. Once pneumoperitoneum was established, a 12 mm bladed port was placed at the supraumbilical region. A 10 mm 30 degree laparoscope was inserted. Veress insertion had caused no inadvertent injury. The needle was removed. Additional 5 mm ports were placed at the LLQ and LUQ. The appendix was seen coming off the cecum. An additional 5 mm port was palced at the RLQ. This area was grasped and placed on tension inferiorly and anteriorly to help identify the ileocolic pedicle. Medial to lateral dissection proceeded, taking the mesocolon off the retroperitoneum. The ileocolic vessels were divided with the Ligasure. The duodenum was identified and protected. Next, the terminal ileum was mobilized from its surrounding attachment, and lateral attachments of the ascending colon were divided up to the hepatic flexure. The ileum was divided 5 cm proximal to the ileocecal valve using the powered linear cutting stapler. The proximal transverse colon was mobilized as well, and attachments to the gallbladder required adhesiolysis. Laparoscopic graspers were placed on the stapled ends of small bowel. The 12 port was then removed, and the incision at this site extended cephalad for 5 cm. The cecum was passed up through the incision and the inked area of the colon was externalized. The ileum also reached up easily into the field outside of the abdomen. The contour stapler was again used to divide the colon just distal to the ink marking and specimen was passed off the field. The two stapled ends of bowel were lined up side by side, and enterotomies were made to permit passage of a 60 mm linear cutting stapler. After the anastomosis was created, the remaining enterotomy was closed with a 30 mm TA stapler. The bowel was reduced into the abdomen and covered with omentum. Fascia was closed with running 0 PDS suture and skin closed with dipika. The 5 mm laparoscopic sites were closed with interrupted deep dermal sutures and dressed with mastisol and steri-strips. The patient tolerated the operation well.
[2019-12-25] MEDS: Acetaminophen 325 MG Tab PO SCH (17:42)
[2019-12-25] MEDS: Ondansetron 4 MG/2 ML SDV IV SCH ×2 (17:42→21:41)
[2019-12-25] MEDS: Morphine PF 30 MG/30 ML PCA Vial IV SCH (17:58)
[2019-12-25] MEDS: Lactated Ringers 1,000 ML IV SCH (18:02)
[2019-12-25] MEDS: Simvastatin 20 MG Tab PO SCH (18:11)
[2019-12-25] MEDS: Metoprolol Tartrate 25 MG Tab PO SCH (21:41)
[2019-12-26] MEDS: Acetaminophen 325 MG Tab PO SCH ×3 (00:08→15:00)
[2019-12-26] MEDS: Lactated Ringers 1,000 ML IV SCH ×2 (03:59→14:55)
[2019-12-26] MEDS: Ondansetron 4 MG/2 ML SDV IV SCH ×4 (03:59→21:14)
[2019-12-26] MEDS: Morphine PF 30 MG/30 ML PCA Vial IV SCH ×2 (05:57→20:44)
[2019-12-26] MEDS ORDERED: Sodium Chloride 0.9% 1,000 ML IV ONE (07:41)
--- NOTE | 2019-12-26 07:44 | PCM48HPAN ---
Post Anesthesia Note - EVALUATION WITHIN 48HRS OF ANESTHETIC Vital Signs in Normal Range: Yes Patient Participated in Evaluation: Yes Respiratory Function Stable: Yes Airway Patent: Yes Cardiovascular Function Stable: Yes Hydration Status Stable: Yes Pain Control Satisfactory: Yes Nausea and Vomiting Control Satisfactory: Yes Mental Status Recovered: Yes Vital Signs: Last Vital Signs Temp 36.9 C 12/26/19 03:57 Pulse 59 L 12/26/19 03:57 Resp 16 12/26/19 07:00 BP 95/51 L 12/26/19 03:57 Pulse Ox 96 12/26/19 07:00
[2019-12-26] MEDS: Heparin Sodium 5,000 Units/ML Vial SUBCUT SCH ×2 (08:21→16:59)
--- NOTE | 2019-12-26 09:45 | PCM.SN.2 ---
- Free Text/Narrative Note: Partial sigmoid colectomy and right hemicolectomy on 12/24 for endoscopically unresectable adenomatous polyps. S: no acute events overnight. 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 O: AF- HR 60-90s range, BP stable, running on low normal side around 90s/50s, normal RR with SpO2 mid 90% on 2 L NC. UOP ~ 80 cc/hr currently Lab work fairly unremarkable this morning although creatinine is up a little from baseline of 1.1 to 1.3. I/O recordings indicate net negative fluid balance. Awake and alert, no distress breathing comfortably Abdominal dressings dry and intact, no distention, appropriately tender clear yellow urine in dong skin warm, well perfused A: Overall appears to be doing well POD 1. Some evidence of hypovolemia. P: -bolus 1 L crystalloid -continue morphine CONDUIT WORKER -IS, OOB, wean O2 as tolerated -LR @ 100 cc/hr -start clear liquid diet -remove dong catheter this afternoon if urine output continues to be good -start heparin 5000 u SC for dvt ppx -repeat labs in AM
[2019-12-26] MEDS: Metoprolol Tartrate 25 MG Tab PO SCH ×2 (10:33→21:13)
[2019-12-26] MEDS: Simethicone 80 MG Tab.Chew PO PRN (16:56)
[2019-12-26] MEDS: Simvastatin 20 MG Tab PO SCH (17:00)
[2019-12-26] MEDS: diphenhydrAMINE 25 MG Cap PO PRN (21:13)
[2019-12-27] MEDS: Acetaminophen 325 MG Tab PO SCH ×3 (00:24→16:22)
[2019-12-27] MEDS: Heparin Sodium 5,000 Units/ML Vial SUBCUT SCH (00:25)
[2019-12-27] MEDS: Lactated Ringers 1,000 ML IV SCH (00:25)
[2019-12-27] MEDS: Simethicone 80 MG Tab.Chew PO PRN (00:25)
[2019-12-27] MEDS: Ondansetron 4 MG/2 ML SDV IV SCH ×5 (04:28→21:03)
--- NOTE | 2019-12-27 08:25 | PCM.SN.2 ---
- Free Text/Narrative Note: Partial sigmoid colectomy and right hemicolectomy on 12/24 for endoscopically unresectable adenomatous polyps. S: passed some flatus. Afterward, reports an episode of severe abdominal pain that woke him from sleep, lasting 20 minutes, now resolved. O: AF- HR 60-90s range, SBP 130-150s, normal RR with SpO2 mid 90% on 2 L NC. UOP abundant, voiding after dong removal CBC shows drop in Hgb from 12.8 to 11.1. WBC stable at 10.6. Electrolytes within normal range. Awake and alert, no distress breathing comfortably Abdominal dressings dry and intact, no distention, soft, appropriately tender, more so on right side, some ecchymosis at right side of midline incision. Bowel sounds audible on auscultation. skin warm, well perfused A: Appears clinically well this morning. No evidence of hypovolemia, but Hgb is trending down. No clinical sign of hemorrhage. The episode of severe pain is concerning but there is no sign of peritonitis on exam this morning. 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
[2019-12-27] MEDS: Metoprolol Tartrate 25 MG Tab PO SCH ×2 (08:58→20:47)
[2019-12-27] MEDS: D5 1/2 NS w/ 20 mEq/L KCl 1,000 ML IV SCH ×2 (09:11→23:07)
[2019-12-27] MEDS: Simvastatin 20 MG Tab PO SCH (18:00)
[2019-12-27] MEDS: Morphine PF 30 MG/30 ML PCA Vial IV SCH (20:40)
[2019-12-27] MEDS: diphenhydrAMINE 25 MG Cap PO PRN (20:48)
[2019-12-28] MEDS: Acetaminophen 325 MG Tab PO SCH ×3 (00:29→15:26)
[2019-12-28] MEDS: Ondansetron 4 MG/2 ML SDV IV SCH ×4 (04:44→22:04)
[2019-12-28] MEDS ORDERED: Docusate Sodium 100 MG Cap PO PRN (08:17)
--- NOTE | 2019-12-28 08:27 | PCM.SN.2 ---
- Free Text/Narrative Note: Partial sigmoid colectomy and right hemicolectomy on 12/24 for endoscopically unresectable adenomatous polyps. S: passed more flatus and loose bowel movement x 2 overnight. No further episodes of pain. Some bloating last night, resolved after receiving zofran. O: AF-VSS, on 1L O2. UOP abundant CBC shows normal WBC, stable Hgb. BMP wnl. Awake and alert, no distress breathing comfortably Abdomen soft, no distention, appropriately tender, incision sites are clean and intact skin warm, well perfused A: Appears clinically well this morning. 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
[2019-12-28] MEDS: Metoprolol Tartrate 25 MG Tab PO SCH ×2 (08:29→22:03)
[2019-12-28] MEDS: Heparin Sodium 5,000 Units/ML Vial SUBCUT SCH ×2 (08:32→16:19)
[2019-12-28] MEDS: Polyethylene Glycol 3350 Powder 17 GM Packet PO SCH (08:34)
[2019-12-28] MEDS: Sodium Chloride 0.9% 250 ML IV SCH ×2 (10:59→22:06)
[2019-12-28] MEDS: Simvastatin 20 MG Tab PO SCH (17:31)
[2019-12-28] MEDS: diphenhydrAMINE 25 MG Cap PO PRN (22:05)
[2019-12-29] MEDS: Acetaminophen 325 MG Tab PO SCH ×2 (00:28→08:17)
[2019-12-29] MEDS: Heparin Sodium 5,000 Units/ML Vial SUBCUT SCH ×2 (00:29→08:18)
[2019-12-29] MEDS: Ondansetron 4 MG/2 ML SDV IV SCH (03:57)
[2019-12-29] MEDS: Sodium Chloride 0.9% 250 ML IV SCH (07:46)
[2019-12-29] MEDS: Polyethylene Glycol 3350 Powder 17 GM Packet PO SCH (08:18)
[2019-12-29] MEDS: Metoprolol Tartrate 25 MG Tab PO SCH (08:21)
[2019-12-29 08:22] VITALS: PULSE 69
[2019-12-29 08:23] VITALS: BP 141/73
--- NOTE | 2019-12-29 08:57 | PCM.DCSUM1 ---
Discharge Summary - Hospital Course Free Text/Narrative:: Mr. Gill presented for elective partial sigmoid colectomy and right hemicolectomy for two endoscopically unresectable adenomatous polyps detected on screening colonoscopy. He tolerated the operation well and had an uneventful post-operative recovery in the hospital. His pain was minimal, he was able to tolerate a diet and pass flatus starting post-op day two, and did well with ambulating. Post-op lab work was unremarkable, and on post-op day 4 a serum CRP level was checked and measured 173 mg/L, indicating low likelihood of anastomotic leak. He was deemed fit for discharge to home on POD 4. Diagnosis: Stroke: No - Discharge Data Discharge Date: 12/29/19 Discharge Disposition: Home, Self-Care 01 Condition: Good - Referral to Home Health Primary Care Physician: Arcelia Rey NP - Patient Instructions Diet: Usual Diet as Tolerated Activity: No Lifting Over 10 Pounds Showering/Bathing: May Shower Wound/Incision Care: Keep Operative Site/Wound Site Clean and Dry Notify Provider of: Fever, Increased Pain, Swelling and Redness, Drainage, Nausea and/or Vomiting - Discharge Plan *PRESCRIPTION DRUG MONITORING PROGRAM REVIEWED*: Not Applicable *COPY OF PRESCRIPTION DRUG MONITORING REPORT IN PATIENT NILS: Not Applicable Prescriptions/Med Rec: oxyCODONE 5 mg PO Q4H PRN #15 tab PRN Reason: Pain Home Medications: Home Meds Aspirin [Halfprin] 81 mg PO QPM 08/10/15 [History] Lisinopril 40 mg PO QPM 08/10/15 [History] Ubidecarenone [Co Q-10] 100 mg PO DAILY 08/10/15 [History] Meloxicam 15 mg PO DAILY 05/16/17 [History] [place]-3S/DHA/Epa/Fish Oil [[place]-3 Fish Oil 1,200 mg Sfgl] 1,000 mg PO DAILY 05/16/17 [History] Cholecalciferol (Vitamin D3) [Vitamin D3] 1,000 unit PO QPM 11/26/19 [History] Metoprolol Tartrate 25 mg PO BID 11/26/19 [History] Sildenafil [Viagra] 100 mg PO ASDIRECTED PRN 11/26/19 [History] atorvaSTATin [Lipitor] 20 mg PO QPM 11/26/19 [History] oxyCODONE 5 mg PO Q4H PRN #15 tab 12/29/19 [Rx] Oxygen Therapy Mode: Room Air Patient Handouts: Steps to Quit Smoking Referrals: Arcelia Rey DOPER OPERATOR [Primary Care Provider] - - Discharge Summary/Plan Comment DC Time >30 min.: No Discharge Summary/Plan Comment: resume all regular home medications. - General Info Date of Service: 12/29/19 Functional Status: Reports: Pain Controlled, Tolerating Diet, Ambulating, Urinating, Incentive Spirometry - Review of Systems General: Reports: No Symptoms HEENT: Reports: No Symptoms Pulmonary: Reports: No Symptoms Cardiovascular: Reports: No Symptoms Gastrointestinal: Reports: No Symptoms, Flatus Genitourinary: Reports: No Symptoms Musculoskeletal: Reports: No Symptoms Skin: Reports: No Symptoms Neurological: Reports: No Symptoms Psychiatric: Reports: No Symptoms - Patient Data Vitals - Most Recent: Last Vital Signs Temp 37.0 C 12/29/19 07:38 Pulse 69 12/29/19 08:21 Resp 16 12/29/19 07:38 BP 141/73 H 12/29/19 08:21 Pulse Ox 94 L 12/29/19 08:38 Weight - Most Recent: 86.5 kg I&O - Last 24 hours: Intake & Output 12/28/19 12/29/19 12/29/19 22:59 06:59 14:59 Intake Total 1772 891 Output Total 1350 Balance 1772 -459 Lab Results - Last 24 hrs: Laboratory Results - last 24 hr 12/29/19 Range/Units 05:50 C-Reactive Protein 17.3 H* (<1.0) mg/dL Med Orders - Current: Current Medications Acetaminophen (Tylenol) 975 mg PO Q8H [facility] Last Admin: 12/29/19 08:17 Dose: 975 mg Documented by: Diphenhydramine HCl (Benadryl) 25 mg PO BEDTIME PRN PRN Reason: Sleep Last Admin: 12/28/19 22:05 Dose: 25 mg Documented by: Docusate Sodium (Colace) 100 mg PO DAILY PRN PRN Reason: Constipation Last Admin: 12/28/19 08:53 Dose: 100 mg Documented by: Heparin Sodium (Porcine) (Heparin Sodium) 5,000 units SUBCUT Q8H [facility] Last Admin: 12/29/19 08:18 Dose: 5,000 units Documented by: Sodium Chloride (Normal Saline) 250 mls @ 25 mls/hr IV ASDIRECTED [facility] Last Admin: 12/29/19 07:46 Dose: 25 mls/hr Documented by: Metoprolol Tartrate (Lopressor) 25 mg PO BID [facility] Last Admin: 12/29/19 08:21 Dose: 25 mg Documented by: Morphine Sulfate (Morphine Academic Interventionist 30 Mg In 30 Ml) 0 mg IV ASDIRECTED TARA; Protocol Last Admin: 12/27/19 20:40 Dose: 30 mg Documented by: Ondansetron HCl (Zofran) 4 mg IV Q6H TARA Last Admin: 12/29/19 03:57 Dose: 4 mg Documented by: Oxycodone HCl (Oxycodone) 5 mg PO Q4H PRN PRN Reason: Pain (moderate 4-6) Last Admin: 12/28/19 19:33 Dose: 5 mg Documented by: Polyethylene Glycol (Miralax) 17 gm PO DAILY [facility] Last Admin: 12/29/19 08:18 Dose: 17 gm Documented by: Simethicone (Simethicone) 80 mg PO Q6H PRN PRN Reason: Gas Last Admin: 12/27/19 00:25 Dose: 80 mg Documented by: Simvastatin (Zocor) 20 mg PO QPM [facility] Last Admin: 12/28/19 17:31 Dose: 20 mg Documented by: Discontinued Medications Albuterol (Proventil Neb Soln) 2.5 mg NEB ONETIME [facility] Stop: 12/25/19 12:00 Last Admin: 12/25/19 08:59 Dose: 2.5 mg Documented by: Bupivacaine HCl/Epinephrine Bitart (Marcaine 0.5%/Epinephrine 1:200,000) Confirm Administered Dose 50 ml .ROUTE .STK-MED ONE Stop: 12/25/19 08:47 Last Admin: 12/25/19 10:46 Dose: 28 ml Documented by: Dexamethasone (Dexamethasone) Confirm Administered Dose 20 mg .ROUTE .STK-MED ONE Stop: 12/25/19 08:38 Ephedrine Sulfate (Ephedrine Sulfate) Confirm Administered Dose 50 mg .ROUTE .STK-MED ONE Stop: 12/25/19 10:54 Fentanyl (Sublimaze) Confirm Administered Dose 100 mcg .ROUTE .STK-MED ONE Stop: 12/25/19 08:37 Fentanyl (Sublimaze) 50 mcg IVPUSH Q5M PRN PRN Reason: Pain Stop: 12/25/19 18:30 Glycopyrrolate (Robinul) Confirm Administered Dose 0.8 mg .ROUTE .STK-MED ONE Stop: 12/25/19 15:26 Heparin Sodium (Porcine) (Heparin Sodium) 5,000 units SUBCUT Q8H [facility] Last Admin: 12/27/19 00:25 Dose: 5,000 units Documented by: Hydromorphone HCl (Dilaudid) Confirm Administered Dose 0.5 mg .ROUTE .STK-MED ONE Stop: 12/25/19 10:44 Hydromorphone HCl (Dilaudid) Confirm Administered Dose 0.5 mg .ROUTE .STK-MED ONE Stop: 12/25/19 11:22 Hydromorphone HCl (Dilaudid) Confirm Administered Dose 0.5 mg .ROUTE .STK-MED ONE Stop: 12/25/19 11:41 Hydromorphone HCl (Dilaudid) Confirm Administered Dose 0.5 mg .ROUTE .STK-MED ONE Stop: 12/25/19 12:39 Hydromorphone HCl (Dilaudid) Confirm Administered Dose 0.5 mg .ROUTE .STK-MED ONE Stop: 12/25/19 13:16 Hydromorphone HCl (Dilaudid) Confirm Administered Dose 0.5 mg .ROUTE .STK-MED ONE Stop: 12/25/19 13:40 Hydromorphone HCl (Dilaudid) Confirm Administered Dose 0.5 mg .ROUTE .STK-MED ONE Stop: 12/25/19 14:58 Hydromorphone HCl (Dilaudid) 0.5 mg IVPUSH Q10M PRN PRN Reason: Pain (severe 7-10) Stop: 12/25/19 18:30 Lactated Ringer's (Ringers, Lactated) 1,000 mls @ 125 mls/hr IV ASDIRECTED [facility] Stop: 12/25/19 23:00 Last Admin: 12/25/19 08:25 Dose: 125 mls/hr Documented by: Cefoxitin Sodium 2 gm/ Premix 50 mls @ 100 mls/hr IV ONETIME [facility] Stop: 12/25/19 12:00 Lidocaine HCl (Xylocaine-Mpf 1%) Confirm Administered Dose 4 mls @ as directed .ROUTE .[facility]-MED ONE Stop: 12/25/19 08:38 Lactated Ringer's (Ringers, Lactated) Confirm Administered Dose 1,000 mls @ as directed .ROUTE .[facility]-MED ONE Stop: 12/25/19 10:29 Cefoxitin Sodium (Mefoxin In Dextrose,Iso-Osm 2 Gm/50 Ml) Confirm Administered Dose 50 mls @ as directed .ROUTE .[facility]-MED ONE Stop: 12/25/19 10:30 Cefoxitin Sodium (Mefoxin In Dextrose,Iso-Osm 1 Gm/50 Ml) Confirm Administered Dose 50 mls @ as directed .ROUTE .[facility]-MED ONE Stop: 12/25/19 11:21 Lactated Ringer's (Ringers, Lactated) Confirm Administered Dose 1,000 mls @ as directed .ROUTE .[facility]-MED ONE Stop: 12/25/19 11:50 Cefoxitin Sodium (Mefoxin In Dextrose,Iso-Osm 1 Gm/50 Ml) Confirm Administered Dose 50 mls @ as directed .ROUTE .[facility] ONE Stop: 12/25/19 14:25 Lactated Ringer's (Ringers, Lactated) 1,000 mls @ 100 mls/hr IV ASDIRECTED [facility] Last Admin: 12/27/19 00:25 Dose: 100 mls/hr Documented by: Ondansetron HCl 4 mg/ Sodium (Chloride) 52 mls @ 100 mls/hr IV Q6H [facility] Sodium Chloride (Normal Saline) 1,000 mls @ 1,000 mls/hr IV ONETIME ONE Stop: 12/26/19 08:40 Last Admin: 12/26/19 08:13 Dose: 1,000 mls/hr Documented by: Potassium Chloride/Dextrose/Sod Cl (D5 1/2 Ns W/ 20 Meq/L Kcl) 1,000 mls @ 75 mls/hr IV ASDIRECTED [facility] Last Admin: 12/27/19 23:07 Dose: 75 mls/hr Documented by: Influenza Virus Vaccine (Pharmacy To Dose - Influenza Vaccine) 1 each IM ONETIME ONE Stop: 12/24/19 16:12 Influenza Virus Vaccine (Fluzone High-Dose Quad ) 240 mcg IM .ONCE ONE Stop: 12/25/19 11:01 Last Admin: 12/25/19 17:41 Dose: Not Given Documented by: Influenza Virus Vaccine (Pharmacy To Dose - Influenza Vaccine) 1 each IM ONETIME ONE Stop: 12/25/19 17:36 Influenza Virus Vaccine (Fluzone High-Dose Quad 2019-) 240 mcg IM .ONCE ONE Stop: 12/25/19 23:01 Last Admin: 12/25/19 23:23 Dose: Not Given Documented by: Ketamine HCl (Ketalar) Confirm Administered Dose 500 mg .ROUTE .STK-MED ONE Stop: 12/25/19 11:01 Ketorolac Tromethamine (Toradol) Confirm Administered Dose 30 mg .ROUTE .STK-MED ONE Stop: 12/25/19 08:38 Lidocaine/Sodium Bicarbonate (Buffered Lidocaine 1% In Ns 8.4%) 0.25 ml IDERM ONETIME PRN PRN Reason: Prior to IV Start Stop: 12/25/19 18:00 Last Admin: 12/25/19 08:25 Dose: 0.25 ml Documented by: Midazolam HCl (Versed 1 Mg/Ml) Confirm Administered Dose 2 mg .ROUTE .STK-MED ONE Stop: 12/25/19 08:37 Miscellaneous Medication (Phenylephrine 1 Mg/10 Ml-Ns) Confirm Administered Dose 1 mg .ROUTE .STK-MED ONE Stop: 12/25/19 10:46 Neostigmine Methylsulfate (Neostigmine Methylsulfate) Confirm Administered Dose 5 mg .ROUTE .STK-MED ONE Stop: 12/25/19 15:26 Ondansetron HCl (Zofran) Confirm Administered Dose 4 mg .ROUTE .STK-MED ONE Stop: 12/25/19 08:38 Ondansetron HCl (Zofran) Confirm Administered Dose 4 mg .ROUTE .STK-MED ONE Stop: 12/25/19 15:27 Ondansetron HCl (Zofran) 4 mg IVPUSH ONETIME PRN PRN Reason: Nausea/Vomiting Stop: 12/25/19 18:30 Propofol (Diprivan 20 Ml) Confirm Administered Dose 200 mg .ROUTE .STK-MED ONE Stop: 12/25/19 08:37 Rocuronium [place] (Zemuron) Confirm Administered Dose 50 mg .ROUTE .STK-MED ONE Stop: 12/25/19 08:38 Rocuronium [place] (Zemuron) Confirm Administered Dose 50 mg .ROUTE .STK-MED ONE Stop: 12/25/19 11:18 Sodium Chloride (Saline Flush) 10 ml FLUSH ASDIRECTED PRN PRN Reason: Keep Vein Open Stop: 12/25/19 18:00 - Exam Quality Assessment: Reports: Supplemental Oxygen General: Reports: Alert, Oriented, Cooperative, No Acute Distress HEENT: Reports: Pupils Equal Neck: Reports: Supple Lungs: Reports: Normal Respiratory Effort Cardiovascular: Reports: Regular Rate, Regular Rhythm GI/Abdominal Exam: Normal Bowel Sounds, Soft, Non-Tender, No Distention, Other (incisions look good, no sign of infection) Extremities: Normal Inspection Skin: Reports: Warm, Dry Wound/Incisions: Reports: Healing Well
== END 2019-12-29 10:15 | disposition home or self-care (01) | DRG 331 ==
LOC: JD.MS 07:55
PROVIDERS: ADMIT Surgery; ATTEND Surgery
PROC: 0DBN0ZZ Excision of Sigmoid Colon, Open Approach (ICD-10-PCS; principal; 2019-12-25)
PROC: 0DTF4ZZ Resection of Right Large Intestine, Percutaneous Endoscopic Approach (ICD-10-PCS; 2019-12-25)
PROC: 3E02340 Introduction of Influenza Vaccine into Muscle, Percutaneous Approach (ICD-10-PCS; 2019-12-29)
DX: K63.5 Polyp of colon (principal); F17.210 Nicotine dependence, cigarettes, uncomplicated; H54.7 Unspecified visual loss; I10 Essential (primary) hypertension; M48.061 Spinal stenosis, lumbar region without neurogenic claudication; Z79.82 Long term (current) use of aspirin; Z79.899 Other long term (current) drug therapy; I25.2 Old myocardial infarction; Z98.890 Other specified postprocedural states; Z98.52 Vasectomy status; Z95.5 Presence of coronary angioplasty implant and graft; E86.1 Hypovolemia; Z23 Encounter for immunization
CPT/HCPCS: 00790; 36415; 80048; 80053; 85025; 85027; 86140; 86850; 86900; 86901; 88304; 88307; 94640; 94762; A9270-GY; G0008; J0694; J1100; J1170; J1644; J1885; J2001; J2250; J2274; J2370; J2405; J2704; J2710; J3010; J3480; J3490; J7030; J7050; J7120

== ENCOUNTER 2022-08-22 06:49 | Day surgery (SDC) | payer OTHER ==
[~2022-08-22 06:49] MED LIST changes: -Lidocaine 1%/Sod Bicarbonate in NS 8.4% 1 ML Syringe IDERM PRN; +Sodium Chloride 0.9% 10 ML Syringe FLUSH SCH
[2022-08-22] MEDS ORDERED: Propofol 200 MG/20 ML SDV ONE (07:05)
[2022-08-22] MEDS ORDERED: Midazolam 1 MG/ML 2 ML SDV ONE (07:06)
[2022-08-22] MEDS ORDERED: fentaNYL 100 MCG/2 ML SDV ONE (07:06)
[2022-08-22] MEDS ORDERED: Albuterol 0.083% 2.5 MG/3 ML Neb Soln NEB SCH (07:27)
[2022-08-22] MEDS ORDERED: Albuterol 0.083% 2.5 MG/3 ML Neb Soln NEB PRN (08:19)
[2022-08-22 09:56] VITALS: BP 94/74; PULSE 87
== END 2022-08-22 09:15 | disposition home or self-care (01) ==
LOC: JD.SDS 06:49
PROVIDERS: ATTEND Surgery
DX: Z12.11 Encounter for screening for malignant neoplasm of colon (principal); D12.4 Benign neoplasm of descending colon; D12.3 Benign neoplasm of transverse colon; K62.1 Rectal polyp; K57.30 Diverticulosis of large intestine without perforation or abscess without bleeding; K64.8 Other hemorrhoids; I10 Essential (primary) hypertension; E78.00 Pure hypercholesterolemia, unspecified; M16.0 Bilateral primary osteoarthritis of hip; H90.3 Sensorineural hearing loss, bilateral; I25.2 Old myocardial infarction; G47.30 Sleep apnea, unspecified; Z95.5 Presence of coronary angioplasty implant and graft; I25.10 Atherosclerotic heart disease of native coronary artery without angina pectoris; M48.061 Spinal stenosis, lumbar region without neurogenic claudication; M51.16 Intervertebral disc disorders with radiculopathy, lumbar region; F17.210 Nicotine dependence, cigarettes, uncomplicated; Z98.0 Intestinal bypass and anastomosis status; Z79.82 Long term (current) use of aspirin; Z79.899 Other long term (current) drug therapy; Z85.038 Personal history of other malignant neoplasm of large intestine; Z98.890 Other specified postprocedural states; Z90.79 Acquired absence of other genital organ(s)
CPT/HCPCS: 45385; 45390; 88305; J2250; J2704; J3010; J7120; 00811; J7620-GY

== ENCOUNTER 2022-11-27 16:12 | Emergency (ER) | payer MEDICARE, OTHER ==
[2022-11-27] MEDS ORDERED: Sodium Chloride 0.9% 10 ML Syringe FLUSH PRN ×2 (16:39→17:34)
[2022-11-27 17:07] LABS: BASOPHILS PERCENT AUTO 0.4 % (0.0-1.0); EOSINOPHILS ABSOLUTE AUTO 0.1 K/mm3 (0.0-0.4); EOSINOPHILS PERCENT AUTO 1.2 % (0.0-6.0); HEMATOCRIT 45.8 % (42.0-52.0); HEMOGLOBIN 16.1 gm/dl (14.0-18.0); IMMATURE GRAN ABSOLUTE AUTO 0.05 K/mm3 (0.00-0.05); IMMATURE GRAN PERCENT AUTO 0.5 % (0.0-0.4); LYMPHOCYTES ABSOLUTE AUTO 1.9 K/mm3 (1.0-4.8); LYMPHOCYTES PERCENT AUTO 19.9 % (24.0-44.0); MEAN CORPUSCULAR HEMOGLOBIN 33.8 pg (28.0-32.0); MEAN CORPUSCULAR HGB CONC 35.2 g/dl (32.0-36.0); MEAN CORPUSCULAR VOLUME 96.2 fl (83.0-99.0); MEAN PLATELET VOLUME 9.8 fl (9.4-12.4); MONOCYTES ABSOLUTE AUTO 1.2 K/mm3 (0.0-0.8); MONOCYTES PERCENT AUTO 12.3 % (0.0-8.0); NEUTROPHILS ABSOLUTE AUTO 6.2 K/mm3 (1.8-7.7); NEUTROPHILS PERCENT AUTO 65.7 % (41.0-71.0); PLATELET COUNT,PLT 182 K/mm3 (150-400); RED BLOOD CELL COUNT 4.76 M/mm3 (4.52-5.90); WHITE BLOOD CELL COUNT,WBC 9.42 K/mm3 (3.9-11.3)
[2022-11-27 17:08] LABS: APPEARANCE,URINE CLEAR (Clear); BILIRUBIN,URINE NEGATIVE (Negative); COLOR,URINE YELLOW (Yellow); GLUCOSE,URINE NEGATIVE (Negative); KETONES,URINE NEGATIVE (Negative); LEUKOCYTE ESTERASE,URINE NEGATIVE (Negative); NITRITE,URINE NEGATIVE (Negative); OCCULT BLOOD,URINE 2+ (Negative); PH,URINE 6.5 (5.0-8.0); PROTEIN,URINE TRACE (Negative); UROBILINOGEN,URINE 0.2 (0.2-1.0)
[2022-11-27 17:20] LABS: BACTERIA,URINE FEW /hpf (FEW); MUCUS,URINE FEW /hpf (FEW); RBC,URINE 0-5 /hpf (0-5); SQUAMOUS EPITHELIAL CELLS,UR 0-5 /hpf (0-5); WBC,URINE 0-5 /hpf (0-5)
[2022-11-27 17:30] LABS: A/G RATIO 0.9 (1-2); ALBUMIN 3.7 g/dl (3.4-5.0); ANION GAP 15.9 (5-15); BILIRUBIN TOTAL 0.6 mg/dL (0.2-1.0); BUN/CREATININE RATIO 11.8 (14-18); CALCIUM 9.8 mg/dL (8.5-10.1); CREATININE 1.1 mg/dL (0.7-1.3); EST CRCL DRUG DOSING (CG) 67.61 mL/min; POTASSIUM,K 3.9 mEq/L (3.5-5.1)
[2022-11-27] MEDS ORDERED: Iopamidol 612 MG/ML 100 ML Bottle IVPUSH ONE (17:34)
[2022-11-27] MEDS ORDERED: Sodium Chloride 0.9% 100 ML IV SCH (17:45)
[2022-11-27] MEDS ORDERED: HYDROmorphone 0.5 MG/0.5 ML Syringe IVPUSH ONE (18:06)
[2022-11-27 20:04] VITALS: BP 157/86; PULSE 65
== END 2022-11-27 20:00 | disposition home or self-care (01) ==
LOC: JD.ED 16:12
DX: K85.90 Acute pancreatitis without necrosis or infection, unspecified (principal); I25.10 Atherosclerotic heart disease of native coronary artery without angina pectoris; E78.00 Pure hypercholesterolemia, unspecified; I10 Essential (primary) hypertension; I25.2 Old myocardial infarction; Z79.899 Other long term (current) drug therapy; Z95.5 Presence of coronary angioplasty implant and graft; Z79.82 Long term (current) use of aspirin
CPT/HCPCS: 36415; 74177; 76705; 80053; 81001; 83690; 84484; 85025; 86140; 93005; 96374; 99284; J1170; J3490; Q9967; 93010

== ENCOUNTER 2023-08-21 06:46 | Day surgery (SDC) | payer OTHER ==
[~2023-08-21 06:46] MED LIST changes: -Lactated Ringers 1,000 ML IV SCH
[2023-08-21] MEDS: Lactated Ringers 1,000 ML IV SCH (07:00)
[2023-08-21] MEDS ORDERED: fentaNYL 100 MCG/2 ML SDV ONE (07:20)
[2023-08-21] MEDS ORDERED: Propofol 200 MG/20 ML SDV ONE ×2 (07:20)
[2023-08-21] MEDS ORDERED: Lidocaine 1% 4 ML ONE (07:20)
[2023-08-21 08:36] VITALS: BP 110/80; PULSE 74
== END 2023-08-21 08:34 | disposition home or self-care (01) ==
LOC: JD.SDS 06:46
PROVIDERS: ATTEND Surgery
DX: Z12.11 Encounter for screening for malignant neoplasm of colon (principal); K64.0 First degree hemorrhoids; K57.30 Diverticulosis of large intestine without perforation or abscess without bleeding; I10 Essential (primary) hypertension; M16.0 Bilateral primary osteoarthritis of hip; E78.00 Pure hypercholesterolemia, unspecified; F17.200 Nicotine dependence, unspecified, uncomplicated; Z86.010 Personal history of colon polyps; Z98.0 Intestinal bypass and anastomosis status; Z79.82 Long term (current) use of aspirin; Z79.899 Other long term (current) drug therapy
CPT/HCPCS: 45378; J2704; J3010; J7120; J3490

== ENCOUNTER 2023-11-12 08:56 | Emergency (ER) | payer MEDICARE, OTHER ==
[2023-11-12] MEDS: Ketorolac 15 MG/ML SDV IM ONE (10:23)
[2023-11-12] MEDS: Ketorolac 15 MG/ML SDV IVPUSH ONE (10:24)
[2023-11-12 16:14] VITALS: BP 123/68; PULSE 59
== END 2023-11-12 12:41 | disposition home or self-care (01) ==
LOC: JD.ED 08:56
DX: M25.521 Pain in right elbow (principal); I10 Essential (primary) hypertension; I25.2 Old myocardial infarction; E78.00 Pure hypercholesterolemia, unspecified; M19.90 Unspecified osteoarthritis, unspecified site; Z79.82 Long term (current) use of aspirin; Z79.899 Other long term (current) drug therapy
CPT/HCPCS: 73080; 96372; 99283; J1885; 99284